=== PATIENT | male | born 1975 | race Caucasian/White ===

== ENCOUNTER 2018-05-21 01:21 | Inpatient (IN) ==
--- NOTE | 2018-05-21 01:37 | Emergency Department Note ---
Disposition Clinical Impression: PTSD (post-traumatic stress disorder) Disposition: Home, Self-Care Condition: Fair Instructions: Depression (ED), Post Traumatic Stress Disorder (ED), Suicide Prevention for Adults (ED) Reasons to Return/Additional Instructions: Please continue to utilize Lexapro 10 mg as directed. Understand that this medi cation takes several weeks for it to become effective. Take hydroxyzine 25mg at night to sleep. Take this approximately 1.5 hours prior to going to sleep. Please follow-up with psychiatrist or therapist for continued evaluation. Should you develop any homicidal or suicidal thoughts please return to the emergency department immediately for repeat evaluation. Prescriptions: Escitalopram [Lexapro] 10 mg PO DAILY #30 tablet RX: hydrOXYzine HCl [Hydroxyzine HCl] 25 mg PO HS PRN #30 tab PRN Reason: Insomnia Referrals: [facility] [Provider Group] Forms: ED Satisfaction Letter General Adult HPI - General Chief complaint: ED Psychiatric Symptoms Stated complaint: ptsd Time Seen by Provider: 05/21/18 01:32 - History of Present Illness Pain Scale: 0 - Related Data Previous Rx's Medication Instructions Recorded Escitalopram [Lexapro] 10 mg PO DAILY #30 tablet 05/21/18 RX: hydrOXYzine HCl [Hydroxyzine 25 mg PO HS PRN #30 tab 05/21/18 HCl] Allergies Allergy/AdvReac Type Severity Reaction Status Date / Time No Known Allergies Allergy Verified 05/21/18 01:30 Course Vital Signs Temperature 97.8 F 05/21/18 01:26 Pulse Rate 73 05/21/18 01:26 Respiratory Rate 18 05/21/18 01:26 Blood Pressure 145/94 05/21/18 01:26 O2 Sat by Pulse Oximetry 97 05/21/18 01:26 Temperature 97.8 F 05/21/18 02:51 Pulse Rate 73 05/21/18 02:51 Respiratory Rate 18 05/21/18 02:51 Blood Pressure 145/94 05/21/18 02:51 O2 Sat by Pulse Oximetry 97 05/21/18 02:51 Oxygen Delivery Oxygen Delivery Room Air Medical Decision Making - Lab Data Result diagrams: 05/21/18 02:31 05/21/18 02:31 Lab Results 05/21/18 05/21/18 05/21/18 Range/Units 02:23 02:23 02:31 WBC 12.2 H (4.3-11.1) K/mcL RBC 4.34 (4.19-5.50) M/mcL Hgb 13.3 (12.9-16.9) g/dL Hct 38.9 (37.5-50.1) % MCV 89.6 (83.0-100.0) fL MCH 30.6 (28.0-33.3) pg MCHC 34.2 (31.6-35.5) g/dL RDW 12.7 (11.5-14.5) % Plt Count 320 (140-400) K/mcL MPV 10.6 (9.4-12.4) fL Immature Gran % 0.4 (0-4) % Seg Neutrophils % 72.1 % Lymphocytes % 17.7 % Monocytes % 8.7 % Eosinophils % 0.7 % Basophils % 0.4 % Neutrophils # 8.8 (1.6-8.9) K/mcL Lymphocytes # 2.2 (0.6-4.6) K/mcL Monocytes # 1.1 (0.0-1.3) K/mcL Eosinophils # 0.1 (0.0-0.6) K/mcL Basophils # 0.1 (0.0-0.2) K/mcL Sodium (136-145) mEq/L Potassium (3.5-5.1) mEq/L Chloride (98-107) mEq/L Carbon Dioxide (23-29) mEq/L BUN (6-20) mg/dL Creatinine (0.70-1.30) mg/dL Est GFR ( Amer) (> 60) Est GFR (Non-Af Amer) (> 60) BUN/Creatinine Ratio (6-26) Glucose (70-105) mg/dL Calculated Osmolality (280-300) Calcium (8.6-10.3) mg/dL Urine Color Yellow (Yellow) Urine Clarity Clear (Clear) Urine pH 6.0 (5.0-8.0) pH Units Ur Specific [place] 1.025 (1.010-1.025) Urine Protein Negative (Neg-Trace) mg/dL Urine Glucose (UA) Normal (Normal) mg/dL Urine Ketones Negative (Negative) mg/dL Urine Blood Negative (Negative) Urine Nitrite Negative (Negative) Urine Bilirubin Negative (Negative) Urine Urobilinogen Normal (Normal) mg/dL Ur Leukocyte Esterase Negative (Negative) Salicylates (15.0-30.0) mg/dL Urine Opiates Screen Negative (Kvwsed=772) ng/mL Acetaminophen (10-20) mcg/mL Ur Barbiturates Screen Negative (Jytjpx=219) ng/mL Ur Phencyclidine Scrn Negative (Cutoff=25) ng/mL Ur Amphetamines Screen Negative (Wjespk=8277) ng/mL U Benzodiazepines Scrn Positive H (Mlnnbq=454) ng/mL Urine Cocaine Screen Negative (Cutoff= 300) ng/mL U Marijuana (THC) Screen Positive H (Cutoff = 50) ng/mL Ur Drug Screen Interp See Below Ethyl Alcohol (Less than 10) mg/dL 05/21/18 Range/Units 02:31 WBC (4.3-11.1) K/mcL RBC (4.19-5.50) M/mcL Hgb (12.9-16.9) g/dL Hct (37.5-50.1) % MCV (83.0-100.0) fL MCH (28.0-33.3) pg MCHC (31.6-35.5) g/dL RDW (11.5-14.5) % Plt Count (140-400) K/mcL MPV (9.4-12.4) fL Immature Gran % (0-4) % Seg Neutrophils % % Lymphocytes % % Monocytes % % Eosinophils % % Basophils % % Neutrophils # (1.6-8.9) K/mcL Lymphocytes # (0.6-4.6) K/mcL Monocytes # (0.0-1.3) K/mcL Eosinophils # (0.0-0.6) K/mcL Basophils # (0.0-0.2) K/mcL Sodium 138 (136-145) mEq/L Potassium 3.6 (3.5-5.1) mEq/L Chloride 103 (98-107) mEq/L Carbon Dioxide 26 (23-29) mEq/L BUN 12 (6-20) mg/dL Creatinine 0.75 (0.70-1.30) mg/dL Est GFR ( Amer) > 60 (> 60) Est GFR (Non-Af Amer) > 60 (> 60) BUN/Creatinine Ratio 16 (6-26) Glucose 114 H (70-105) mg/dL Calculated Osmolality 287 (280-300) Calcium 9.6 (8.6-10.3) mg/dL Urine Color (Yellow) Urine Clarity (Clear) Urine pH (5.0-8.0) pH Units Ur Specific [place] (1.010-1.025) Urine Protein (Neg-Trace) mg/dL Urine Glucose (UA) (Normal) mg/dL Urine Ketones (Negative) mg/dL Urine Blood (Negative) Urine Nitrite (Negative) Urine Bilirubin (Negative) Urine Urobilinogen (Normal) mg/dL Ur Leukocyte Esterase (Negative) Salicylates < 2.5 L (15.0-30.0) mg/dL Urine Opiates Screen (Mlkgob=404) ng/mL Acetaminophen < 10 L (10-20) mcg/mL Ur Barbiturates Screen (Jewwtu=746) ng/mL Ur Phencyclidine Scrn (Cutoff=25) ng/mL Ur Amphetamines Screen (Omtmst=7355) ng/mL U Benzodiazepines Scrn (Msfoqh=865) ng/mL Urine Cocaine Screen (Cutoff= 300) ng/mL U Marijuana (THC) Screen (Cutoff = 50) ng/mL Ur Drug Screen Interp Ethyl Alcohol < 10 (Less than 10) mg/dL Attestation Statement - Attestation Attestation: I examined this patient and my medical decision-making was reviewed with the Resident Physician. I agree with the documented findings, disposition and treatment plan as described except to the extent set forth below. [id number] time provided Patient has been experiencing insomnia and PTSD-like symptoms. He does not appear in any acute distress on exam. I evaluated him in conjunction with the resident physician
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
[2018-05-21 02:33] LABS: Bilirubin,Urine Negative (Negative); Blood,Urine Negative (Negative); Clarity,Urine Clear (Clear); Color,Urine Yellow (Yellow); Glucose,Urine (UA) Normal (Normal); Ketones,Urine Negative (Negative); Leukocyte Esterase,Urine Negative (Negative); Nitrite,Urine Negative (Negative); Protein,Urine Negative (Neg-Trace); Specific Gravity,Urine 1.025 (1.010-1.025); Urobilinogen,Urine Normal (Normal)
[2018-05-21 02:42] LABS: Basophils # 0.1 K/mcL (0.0-0.2); Basophils % 0.4 %; Eosinophils # 0.1 K/mcL (0.0-0.6); Eosinophils % 0.7 %; Hematocrit 38.9 % (37.5-50.1); Hemoglobin 13.3 g/dL (12.9-16.9); Immature Granulocytes % 0.4 % (0-4); Lymphocytes # 2.2 K/mcL (0.6-4.6); Lymphocytes % 17.7 %; Mean Corpuscular HGB Conc 34.2 g/dL (31.6-35.5); Mean Corpuscular Hemoglobin 30.6 pg (28.0-33.3); Mean Corpuscular Volume 89.6 fL (83.0-100.0); Mean Platelet Volume 10.6 fL (9.4-12.4); Monocytes # 1.1 K/mcL (0.0-1.3); Monocytes % 8.7 %; Neutrophils # 8.8 K/mcL (1.6-8.9); Platelet Count 320 K/mcL (140-400); Red Blood Count 4.34 M/mcL (4.19-5.50); Red Cell Distribution Width 12.7 % (11.5-14.5); Segmented Neutrophils % 72.1 %
[2018-05-21 02:49] LABS: Amphetamine Screen,Urine Negative ng/mL (Cutoff=1000); Barbiturate Screen,Urine Negative ng/mL (Cutoff=200); Benzodiazepines Screen,Urine Positive ng/mL (Cutoff=200); Cannabinoid Screen,Urine Positive ng/mL (Cutoff = 50); Cocaine Screen,Urine Negative ng/mL (Cutoff= 300); Opiate Screen,Urine Negative ng/mL (Cutoff=300); Phencyclidine Screen,Urine Negative ng/mL (Cutoff=25)
[2018-05-21 03:03] LABS: Acetaminophen < 10 mcg/mL (10-20); BUN/Creatinine Ratio 16 (6-26); Blood Urea Nitrogen 12 mg/dL (6-20); Calcium 9.6 mg/dL (8.6-10.3); Carbon Dioxide 26 mEq/L (23-29); Chloride 103 mEq/L (98-107); Ethanol < 10 mg/dL (Less than 10); Glucose 114 mg/dL (70-105); Osmolality,Calculated 287 (280-300); Potassium 3.6 mEq/L (3.5-5.1); Salicylate < 2.5 mg/dL (15.0-30.0); Sodium 138 mEq/L (136-145); eGFR For Non-African Americans > 60 (> 60)
[2018-05-21] MEDS ORDERED: *HR* LORazepam 2 MG/ML VIAL IM PRN (06:14)
[2018-05-21] MEDS ORDERED: Haloperidol Lactate 5 MG/ML VIAL IM PRN (06:14)
[2018-05-21] MEDS ORDERED: MOM Conc 10 ML UD.LIQ PO PRN (06:14)
[2018-05-21] MEDS ORDERED: Mag Hydrox/Al Hydrox/Simeth 30 ML UDC PO PRN (06:14)
[2018-05-21] MEDS ORDERED: *HR* LORazepam 1 MG TABLET PO PRN (06:14)
[2018-05-21] MEDS ORDERED: Ibuprofen 400 MG TABLET PO PRN (06:14)
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
[2018-05-21] MEDS: ARIPiprazole 5 MG TABLET PO SCH ×2 (12:05→20:30)
[2018-05-21] MEDS: hydrOXYzine pamoate 25 MG CAPSULE PO PRN ×2 (12:06→16:14)
[2018-05-21] MEDS ORDERED: *HR* LORazepam 1 MG TABLET PO STA (16:25)
[2018-05-21] MEDS ORDERED: ARIPiprazole 5 MG TABLET PO STA (16:25)
[2018-05-21] MEDS: traZODone 50 MG TABLET PO PRN (20:30)
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
[2018-05-22] MEDS: hydrOXYzine pamoate 25 MG CAPSULE PO PRN (11:36)
[2018-05-22] MEDS: traZODone 50 MG TABLET PO PRN (21:28)
[2018-05-22] MEDS: ARIPiprazole 5 MG TABLET PO SCH (21:28)
[2018-05-23] MEDS: hydrOXYzine pamoate 25 MG CAPSULE PO PRN (08:40)
--- NOTE | 2018-05-23 09:43 | Discharge Summary ---
Date of Encounter: 05/23/18 Time of Encounter: 09:42 Diagnosis - Discharge Diagnosis (1) Major depressive disorder, recurrent, severe with psychotic features Status: Acute Medications - Discharge Medications Prescriptions: ARIPiprazole [Abilify] 5 mg PO HS #30 tablet hydrOXYzine pamoate [HydrOXYzine Pamoate] 25 mg PO TID PRN #90 capsule PRN Reason: Anxiety Sertraline [Zoloft] 50 mg PO DAILY #30 tablet Gabapentin [Neurontin] 400 mg PO TID PRN 05/21/18 [History] Levothyroxine [Synthroid] 150 mcg PO DAILY 05/21/18 [History] Tizanidine HCl 4 mg PO TID PRN 05/21/18 [History] ARIPiprazole [Abilify] 5 mg PO HS #30 tablet 05/23/18 [Rx] Sertraline [Zoloft] 50 mg PO DAILY #30 tablet 05/23/18 [Rx] hydrOXYzine pamoate [HydrOXYzine Pamoate] 25 mg PO TID PRN #90 capsule 05/23/18 [Rx] Allergy/AdvReac Type Severity Reaction Status Date / Time No Known Allergies Allergy Verified 05/21/18 01:30 Results Procedures and tests throughout hospitalization: Completed Lab Orders Category Date Time Status Acetaminophen Stat Lab 05/21/18 02:31 Completed Basic Metabolic Panel Stat Lab 05/21/18 02:31 Completed Complete Blood Count [HEME] Stat Lab 05/21/18 02:31 Completed Drug Screen, Urine [UCHEM] Stat Lab 05/21/18 02:23 Completed Ethanol Stat Lab 05/21/18 02:31 Completed Salicylate Stat Lab 05/21/18 02:31 Completed Urinalysis reflex Microscopic [URIN] Stat Lab 05/21/18 02:23 Completed Provider Date of admission: 05/21/18 06:02 Primary care physician: PCP NONE Discharging clinician: Vanessa Recio Psychiatry Exam - Constitutional Vitals: Temp Pulse Resp BP Pulse Ox 97.2 F L 78 18 157/91 99 05/22/18 20:48 05/22/18 20:48 05/22/18 20:48 05/22/18 20:48 05/22/18 20:48 General appearance: age & developmentally appropriate, well-groomed, well- nourished - Musculoskeletal Gait: normal Station: relaxed Strength & Tone: normal for patient - Psychiatric Patient Orientation: Yes Person, Yes Time, Yes Place Level of alertness: Alert Behavior: calm, cooperative Psychomotor activity: Normal Eye Contact: Maintains Eye Contact Mood Description: Anxious Affect description: blunted Speech Volume: Normal Speech pattern: normal rate, normal rhythm, normal tone, fluent, spontaneous Language & Vocabulary: consistent with education Thought Process: Linear, Goal Oriented Thought Content: No Suicidal ideation, No Homicidal ideation, No Overt delusions Perceptual Disturbances: No Auditory hallucinations, No Visual hallucinations Attention Span Ability: Capable of Focused Attention Memory Description: Grossly Intact Patient Reliability: Reliable Historian Intelligence Estimate: Average Judgment: Fair Insight: Partial Hospital Course Hospital course: Mr. Hare is a 42 year old male who was admitted secondary to SI. Reports he has been depressed off and on during his lifetime but had never been suicidal be fore. Does not know what his trigger was but developed suicidal thoughts on . Currently denies SI. States being in here has given him a new perspective. Anxious to go home. supportive and wants him home. Wants to walk his dog. Started on Zoloft, Abilify, and Vistaril with some benefit. Current plan is to follow with PCP but will have social work follow-up with client at home as client would probably benefit from counseling and seeing a psychiatrist to manage meds. Has never been linked with mental health care in the past. Continues to look depressed but client is adamant he has many reasons to live. Denies SI/HI/AH/VH. Diagnosed with MDD with psychotic features but no evidence of psychosis today. Has intrusive thoughts at times so may have an element of OCD. Following on an outpatient basis will help differentiate between anxiety and psychosis. No evidence of psychosis today. Plan to discharge today. - Time Spent with Patient Total time spent providing and/or coordinating discharge services: Assessment and Plan - Patient/Caregiver Discharge Instructions Activity: resume usual activities as tolerated Diet: regular diet Additional Instructions: follow up with out mental health and D/C home with once stable - Follow up Plan Follow up with: NONE,PCP [Primary Care Provider] - Functional capacity at discharge: independent ambulation Overall status at discharge: Stable Disposition: Home, Self-Care Quality - Multiple Antipsychotics Patient discharged on 2 or more antipsychotic medications: No Procedures - Procedures Procedures: Medication Management, Crisis Stabilization, Supportive Therapy, Group Therapy
[2018-05-23 10:08] VITALS: BP 142/84
== END 2018-05-23 10:55 | disposition home or self-care (01) | DRG 885 ==
LOC: EMEROOARM 01:21 → 1ANU 06:02
PROVIDERS: ADMIT General Practice; ATTEND General Practice